=== PATIENT | male | born 1980 | race Caucasian/White ===

== ENCOUNTER 2020-06-12 01:13 | Emergency (ER) | payer OTHER ==
[~2020-06-12 01:13] MED LIST: BACTRIM DS TAB1 EACH PO; CLARITIN10 MG PO; FLEXERIL 10 MG10 MG PO; HYDROCODON-ACE1 EAC4 PO; IBUPROFEN800 MG PO; KEFLEX500 MG PO; LODINE CAP 300300 MG PO; NORCO 5-325 TA1 EACH PO
[2020-06-12] MEDS ORDERED: LODINE CAP 300300 MG PO (02:49)
== END 2020-06-12 03:19 | disposition home or self-care (01) ==
LOC: ER1 01:13
DX: S61.212A Laceration without foreign body of right middle finger without damage to nail, initial encounter (principal); F17.210 Nicotine dependence, cigarettes, uncomplicated; Z98.890 Other specified postprocedural states; W45.8XXA Other foreign body or object entering through skin, initial encounter; Y92.009 Unspecified place in unspecified non-institutional (private) residence as the place of occurrence of the external cause
CPT/HCPCS: 12002; 99282

== ENCOUNTER 2020-07-23 19:41 | Emergency (ER) | payer OTHER ==
[2020-07-23 20:42] LABS: HEMOGLOBIN 14.8 gm/dl (14.0-17.5); RED BLOOD COUNT 4.57 M/UL (4.20-5.50); WHITE BLOOD COUNT 19.9 K/UL (4.5-11.0)
[2020-07-23 21:03] LABS: BUN/CREATININE RATIO 14 (0-10)
[2020-07-24 06:31] LABS: HEMOGLOBIN 13.1 gm/dl (14.0-17.5); WHITE BLOOD COUNT 15.4 K/UL (4.5-11.0)
[2020-07-24 06:32] LABS: RED BLOOD COUNT 4.11 M/UL (4.20-5.50)
[2020-07-24 06:55] LABS: BUN/CREATININE RATIO 13 (0-10)
== END 2020-07-24 09:09 | disposition other institution (70) ==
LOC: ER1 19:41
PROVIDERS: Family Medicine
DX: T43.622A Poisoning by amphetamines, intentional self-harm, initial encounter (principal); F98.9 Unspecified behavioral and emotional disorders with onset usually occurring in childhood and adolescence; F17.200 Nicotine dependence, unspecified, uncomplicated; Z20.822 Contact with and (suspected) exposure to COVID-19
CPT/HCPCS: 31500; 36415; 36600; 71045; 80053; 80307; 81001; 82550; 82553; 82803; 83735; 83874; 84484; 85025; 87635; 94002; 94003; 94760; 96365; 96375; 96376; 99283; G0480; J0330; J2060; J2250; J2704; J7030

== ENCOUNTER 2021-09-07 14:18 | Emergency (ER) | payer OTHER ==
[2021-09-07] MEDS ORDERED: NAPROXEN500 MG PO (17:26)
== END 2021-09-07 18:12 | disposition home or self-care (01) ==
LOC: ER1 14:18
DX: S01.81XA Laceration without foreign body of other part of head, initial encounter (principal); S11.91XA Laceration without foreign body of unspecified part of neck, initial encounter; Y93 Activity codes; Y93.9 Activity, unspecified; Y04.0XXA Assault by unarmed brawl or fight, initial encounter
CPT/HCPCS: 12001; 70486; 99283

== ENCOUNTER 2022-01-18 18:46 | Emergency (ER) | payer OTHER ==
[~2022-01-18 18:46] MED LIST changes: +ASPIRIN CHEWABL81 MG PO; +NAPROXEN500 MG PO
[2022-01-18 19:13] LABS: HEMOGLOBIN 14.6 gm/dl (14.0-17.5); RED BLOOD COUNT 4.5 M/UL (4.20-5.50); WHITE BLOOD COUNT 10.8 K/UL (4.5-11.0)
[2022-01-18 19:51] LABS: BUN/CREATININE RATIO 17 (0-10)
== END 2022-01-19 01:45 | disposition home or self-care (01) ==
LOC: ER1 18:46
PROVIDERS: Emergency Medicine
DX: U07.1 COVID-19 (principal); F17.290 Nicotine dependence, other tobacco product, uncomplicated
CPT/HCPCS: 0240U; 71045; 80053; 82550; 82553; 84484; 85025; 85379; 93005; 99284; M0222